=== PATIENT | female | born 1945 | race American Indian/Alaskan Native ===

== ENCOUNTER 2017-11-05 13:24 | Inpatient (IN) | payer MEDICARE ==
[2017-11-05 14:02] LABS: Basophils % (Auto) 1.5 % (0.0-1.8); Eosinophils % (Auto) 0.4 % (0.0-4.3); Mean Corpuscular HGB Conc 28 % (30-34); Mean Corpuscular Volume 71 fl (79-97); Platelet Count 242 K/mm3 (140-440); Red Blood Count 3.88 M/mm3 (3.65-5.03); Red Cell Distribution Width 19.7 % (13.2-15.2)
[2017-11-05 14:03] LABS: Hemoglobin 7.9 gm/dl (10.1-14.3)
[2017-11-05 14:04] LABS: Hematocrit 27.7 % (30.3-42.9); Mean Corpuscular Hemoglobin 20 pg (28-32)
[2017-11-05 14:08] LABS: Anion Gap 21 mmol/L; BUN/Creatinine Ratio 21; Blood Urea Nitrogen 19 mg/dL (7-17); Calcium 8.7 mg/dL (8.4-10.2); Carbon Dioxide 21 mmol/L (22-30); Chloride 103.5 mmol/L (98-107); Glucose 91 mg/dL (65-100); Potassium 3.9 mmol/L (3.6-5.0); Sodium 142 mmol/L (137-145)
--- NOTE | 2017-11-05 15:20 | XRay Report ---
AP CHEST : 11/05/17 13:24:00 CLINICAL: Chest pain. COMPARISON:None FINDINGS: Cardiomegaly and central vascular congestion. Mild under expansion of lungs. Mild right basal subsegmental atelectasis. No pulmonary consolidation. No pulmonary nodule or mass. Surgical clips in the left axilla and left chest wall suggest she has had a left mastectomy and left axillary node dissection. No suspicious bone lesion. IMPRESSION: CHF with mild interstitial pulmonary edema. No evidence of metastatic disease.
--- NOTE | 2017-11-05 15:33 | Emergency Department Report ---
ED Chest Pain HPI - General Chief Complaint: Chest Pain Stated Complaint: CHEST PAIN Time Seen by Provider: 11/05/17 14:44 Source: patient, EMS Mode of arrival: Stretcher Limitations: Other - History of Present Illness MD Complaint: chest pain Onset/Timin (hours ago) -: Gradual Time: 04:00 Onset: during rest Pain Location: substernal Pain Radiation: jaw/teeth Severity: moderate, severe Severity scale (0 -10): 6 Quality: pressure Consistency: intermittent Improves With: nothing Worsens With: nothing re: dyspnea Other Symptoms: cough (productive of whitish sputum), other Treatments Prior to Arrival: none - Related Data Home Medications Medication Instructions Recorded Confirmed Last Taken Acyclovir [Zovirax] 400 mg PO Q12H 11/05/17 11/05/17 Unknown Anastrozole (Nf) [Arimidex (Nf)] 1 mg PO DAILY 11/05/17 11/05/17 Unknown Carvedilol 12.5 mg PO BID 11/05/17 11/05/17 Unknown Darunavir Ethanolate [Prezista] 600 mg PO Q12H 11/05/17 11/05/17 Unknown Esomeprazole Magnesium [NexIUM] 40 mg PO QDAY 11/05/17 11/05/17 Unknown Etravirine [Intelence] 200 mg PO BID 11/05/17 11/05/17 Unknown Furosemide [Lasix] 20 mg PO DAILY 11/05/17 11/05/17 11/05/17 07:00 Lisinopril [Zestril] 5 mg PO QDAY 11/05/17 11/05/17 Unknown Potassium Chloride [Klor-Con 10] 10 meq PO DAILY 11/05/17 11/05/17 11/05/17 07: 00 Raltegravir Potassium [Isentress] 400 mg PO Q12H 11/05/17 11/05/17 Unknown Ritonavir [Norvir] 100 mg PO Q12H 11/05/17 11/05/17 Unknown Rosuvastatin (Nf) [Crestor] 5 mg PO QHS 11/05/17 11/05/17 Unknown Allergies Allergy/AdvReac Type Severity Reaction Status Date / Time aspirin Allergy Unknown Verified 11/05/17 13:28 Penicillins Allergy Unknown Verified 11/05/17 13:28 Heart Score - HEART Score History: Moderately suspicious EKG: Non-specific Age: > 65 Risk factors: > 3 risk factors or hx of atherosclerotic disease Troponin: < normal limit HEART Score: 6 ED Review of Systems ROS: Stated complaint: CHEST PAIN Other details as noted in HPI Comment: All other systems reviewed and negative ED Past Medical Hx - Past Medical History Previous Medical History?: Yes Hx Hypertension: Yes Hx Congestive Heart Failure: Yes Additional medical history: anemia - Surgical History Past Surgical History?: No - Social History Smoking Status: Never Smoker Substance Use Type: None - Medications Home Medications: Home Medications Medication Instructions Recorded Confirmed Last Taken Type Acyclovir [Zovirax] 400 mg PO Q12H 11/05/17 11/05/17 Unknown History Anastrozole (Nf) [Arimidex (Nf)] 1 mg PO DAILY 11/05/17 11/05/17 Unknown History Carvedilol 12.5 mg PO BID 11/05/17 11/05/17 Unknown History Darunavir Ethanolate [Prezista] 600 mg PO Q12H 11/05/17 11/05/17 Unknown History Esomeprazole Magnesium [NexIUM] 40 mg PO QDAY 11/05/17 11/05/17 Unknown History Etravirine [Intelence] 200 mg PO BID 11/05/17 11/05/17 Unknown History Furosemide [Lasix] 20 mg PO DAILY 11/05/17 11/05/17 11/05/17 07:00 History Lisinopril [Zestril] 5 mg PO QDAY 11/05/17 11/05/17 Unknown History Potassium Chloride [Klor-Con 10] 10 meq PO DAILY 11/05/17 11/05/17 11/05/17 07: 00 History Raltegravir Potassium [Isentress] 400 mg PO Q12H 11/05/17 11/05/17 Unknown History Ritonavir [Norvir] 100 mg PO Q12H 11/05/17 11/05/17 Unknown History Rosuvastatin (Nf) [Crestor] 5 mg PO QHS 11/05/17 11/05/17 Unknown History ED Physical Exam - General Limitations: Other General appearance: alert, in no apparent distress - Head Head exam: Present: atraumatic, normocephalic - Eye Eye exam: Present: normal appearance - ENT ENT exam: Present: mucous membranes moist - Neck Neck exam: Present: normal inspection - Respiratory Respiratory exam: Present: normal lung sounds bilaterally. Absent: respiratory distress - Cardiovascular Cardiovascular Exam: Present: regular rate, normal rhythm. Absent: systolic murmur, diastolic murmur, rubs, gallop - GI/Abdominal GI/Abdominal exam: Present: soft, normal bowel sounds. Absent: distended, tenderness - Rectal Rectal exam: Present: deferred - Extremities Exam Extremities exam: Present: normal inspection, pedal edema (2 + bilateral) - Back Exam Back exam: Present: normal inspection - Neurological Exam Neurological exam: Present: alert, oriented X3 - Psychiatric Psychiatric exam: Present: normal affect, normal mood - Skin Skin exam: Present: warm, dry, intact, normal color. Absent: rash ED Course Vital Signs 11/05/17 11/05/17 11/05/17 13:33 13:38 13:45 Temperature 98.7 F Pulse Rate 95 H 94 H 96 H Respiratory 15 24 13 Rate Blood Pressure 144/95 Blood Pressure 144/95 [Left] O2 Sat by Pulse 100 100 Oximetry 11/05/17 11/05/17 11/05/17 14:01 14:15 14:31 Temperature Pulse Rate 97 H 94 H 95 H Respiratory 11 L 22 9 L Rate Blood Pressure 155/107 155/107 155/107 Blood Pressure [Left] O2 Sat by Pulse 96 Oximetry 11/05/17 11/05/17 11/05/17 14:45 15:00 15:15 Temperature Pulse Rate 95 H 93 H 95 H Respiratory 18 16 16 Rate Blood Pressure 155/107 142/94 142/94 Blood Pressure [Left] O2 Sat by Pulse 76 L 95 100 Oximetry 11/05/17 11/05/17 11/05/17 15:31 15:45 16:00 Temperature Pulse Rate 94 H 93 H 99 H Respiratory 14 24 21 Rate Blood Pressure 142/94 155/107 142/87 Blood Pressure [Left] O2 Sat by Pulse 100 100 Oximetry 11/05/17 11/05/17 11/05/17 16:15 16:31 16:45 Temperature Pulse Rate 95 H 96 H 97 H Respiratory 12 18 14 Rate Blood Pressure 142/87 142/87 142/87 Blood Pressure [Left] O2 Sat by Pulse 84 Oximetry 11/05/17 11/05/17 11/05/17 17:00 17:15 17:31 Temperature Pulse Rate 98 H 105 H 100 H Respiratory 11 L 15 17 Rate Blood Pressure 143/91 143/91 143/91 Blood Pressure [Left] O2 Sat by Pulse 100 Oximetry 11/05/17 17:45 Temperature Pulse Rate 120 H Respiratory 17 Rate Blood Pressure 143/91 Blood Pressure [Left] O2 Sat by Pulse Oximetry BHARATH score - Bharath Score Age > 65: (1) Yes Aspirin use within the Past 7 Days: (1) Yes 3 or more CAD Risk Factors: (1) Yes 2 or more Angina events in past 24 hrs: (0) No Known CAD with more than 50% Stenosis: (0) No Elevated Cardiac Markers: (0) No ST Deviation Greater than 0.5mm: (0) No BHARATH Score: 3 ED Medical Decision Making - Lab Data Result diagrams: 11/05/17 13:36 11/05/17 13:36 - EKG Data -: EKG Interpreted by Me EKG shows normal: sinus rhythm, axis (normal), intervals (normal), QRS complexes (normal), ST-T waves (nonspecific ST and T-wave changes) Rate: normal (94) - EKG Data When compared to previous EKG there are: other (right bundle branch block) - Radiology Data Radiology results: report reviewed Critical care attestation.: If time is entered above; I have spent that time in minutes in the direct care of this critically ill patient, excluding procedure time. ED Disposition Clinical Impression: Chest pain Acute exacerbation of CHF (congestive heart failure) Qualifiers: Congestive heart failure type: unspecified congestive heart failure type Qualified Code(s): I50.9 - Heart failure, unspecified Disposition: OP ADMIT IP TO THIS HOSP Is pt being admited?: Yes Condition: Stable Time of Disposition: 18:04 (i spoke to Dr Peter at 1800 and he as accepted patient for admission)
[2017-11-05] MEDS ORDERED: LASIX IV ONE (16:53)
--- NOTE | 2017-11-05 19:18 | History and Physical Report ---
History of Present Illness Date of examination: 11/05/17 Date of admission: 11/05/17 Chief complaint: Cc Cp for 10 hrs Sob for 10 hrs History of present illness: HYDABURG 71 y/o with pmh of Htn HIV Gerd and CHF presents with Chest pain since AM.About 10 hrs Chest pain retrosternal.Non radiating.No diaphoresis.No Palpitations.No N/v.Sob at rest present for 1 day.Orthopnea present.No recent travel.No fever or chills. S Past History Past Medical History: GERD, hypertension Past Surgical History: No surgical history Social history: no significant social history, lives with family, full code Family history: hypertension Medications and Allergies Allergies Allergy/AdvReac Type Severity Reaction Status Date / Time aspirin Allergy Unknown Verified 11/05/17 13:28 Penicillins Allergy Unknown Verified 11/05/17 13:28 Home Medications Medication Instructions Recorded Confirmed Last Taken Type Acyclovir [Zovirax] 400 mg PO Q12H 11/05/17 11/05/17 Unknown History Anastrozole (Nf) [Arimidex (Nf)] 1 mg PO DAILY 11/05/17 11/05/17 Unknown History Carvedilol 12.5 mg PO BID 11/05/17 11/05/17 Unknown History Darunavir Ethanolate [Prezista] 600 mg PO Q12H 11/05/17 11/05/17 Unknown History Esomeprazole Magnesium [NexIUM] 40 mg PO QDAY 11/05/17 11/05/17 Unknown History Etravirine [Intelence] 200 mg PO BID 11/05/17 11/05/17 Unknown History Furosemide [Lasix] 20 mg PO DAILY 11/05/17 11/05/17 11/05/17 07:00 History Lisinopril [Zestril] 5 mg PO QDAY 11/05/17 11/05/17 Unknown History Potassium Chloride [Klor-Con 10] 10 meq PO DAILY 11/05/17 11/05/17 11/05/17 07: 00 History Raltegravir Potassium [Isentress] 400 mg PO Q12H 11/05/17 11/05/17 Unknown History Ritonavir [Norvir] 100 mg PO Q12H 11/05/17 11/05/17 Unknown History Rosuvastatin (Nf) [Crestor] 5 mg PO QHS 11/05/17 11/05/17 Unknown History Review of Systems All systems: negative Cardiovascular: chest pain, orthopnea Respiratory: shortness of breath Exam - Constitutional Vitals: Temp Pulse Resp BP Pulse Ox 98.7 F 90 15 133/95 97 11/05/17 13:38 11/05/17 19:11 11/05/17 19:11 11/05/17 19:11 11/05/17 19:11 General appearance: Present: no acute distress, well-nourished - EENT Eyes: Present: PERRL ENT: hearing intact, clear oral mucosa - Neck Neck: Present: supple, normal ROM - Respiratory Respiratory effort: normal Respiratory: bilateral: CTA, rales - Cardiovascular Heart rate: 80 Rhythm: regular Heart Sounds: Present: S1 & S2. Absent: rub, click - Extremities Extremities: no ischemia, pulses intact, pulses symmetrical, No edema Peripheral Pulses: within normal limits - Abdominal General gastrointestinal: Present: soft, non-tender, non-distended, normal bowel sounds Female genitourinary: Present: normal - Rectal Rectal Exam: deferred - Integumentary Integumentary: Present: clear, warm, dry - Musculoskeletal Musculoskeletal: gait normal, strength equal bilaterally - Psychiatric Psychiatric: appropriate mood/affect, intact judgment & insight - Neurologic Neurologic: CNII-XII intact, moves all extremities - Allied Health Allied health notes reviewed: nursing, case management Results - Labs CBC & Chem 7: 11/06/17 04:57 11/06/17 04:57 Labs: Laboratory Last Values WBC 5.0 K/mm3 (4.5-11.0) 11/05/17 13:36 RBC 3.88 M/mm3 (3.65-5.03) 11/05/17 13:36 Hgb 7.9 gm/dl (10.1-14.3) L 11/05/17 13:36 Hct 27.7 % (30.3-42.9) L 11/05/17 13:36 MCV 71 fl (79-97) L 11/05/17 13:36 MCH 20 pg (28-32) L 11/05/17 13:36 MCHC 28 % (30-34) L 11/05/17 13:36 RDW 19.7 % (13.2-15.2) H 11/05/17 13:36 Plt Count 242 K/mm3 (140-440) 11/05/17 13:36 Lymph % (Auto) 21.3 % (13.4-35.0) 11/05/17 13:36 [place] % (Auto) 13.1 % (0.0-7.3) H 11/05/17 13:36 Eos % (Auto) 0.4 % (0.0-4.3) 11/05/17 13:36 Baso % (Auto) 1.5 % (0.0-1.8) 11/05/17 13:36 Lymph # 1.1 K/mm3 (1.2-5.4) L 11/05/17 13:36 [place] # 0.7 K/mm3 (0.0-0.8) 11/05/17 13:36 Eos # 0.0 K/mm3 (0.0-0.4) 11/05/17 13:36 Baso # 0.1 K/mm3 (0.0-0.1) 11/05/17 13:36 Seg Neutrophils % 63.7 % (40.0-70.0) 11/05/17 13:36 Seg Neutrophils # 3.2 K/mm3 (1.8-7.7) 11/05/17 13:36 Sodium 142 mmol/L (137-145) 11/05/17 13:36 Potassium 3.9 mmol/L (3.6-5.0) 11/05/17 13:36 Chloride 103.5 mmol/L (98-107) 11/05/17 13:36 Carbon Dioxide 21 mmol/L (22-30) L 11/05/17 13:36 Anion Gap 21 mmol/L 11/05/17 13:36 BUN 19 mg/dL (7-17) H 11/05/17 13:36 Creatinine 0.9 mg/dL (0.7-1.2) 11/05/17 13:36 Estimated GFR > 60 ml/min 11/05/17 13:36 BUN/Creatinine Ratio 21 % 11/05/17 13:36 Glucose 91 mg/dL (65-100) 11/05/17 13:36 Calcium 8.7 mg/dL (8.4-10.2) 11/05/17 13:36 Troponin T < 0.010 ng/mL (0.00-0.029) 11/05/17 15:22 Short CBC 11/05/17 11/06/17 Range/Units 13:36 04:57 WBC 5.0 5.7 (4.5-11.0) K/mm3 Hgb 7.9 L 8.5 L (10.1-14.3) gm/dl Hct 27.7 L 29.8 L (30.3-42.9) % Plt Count 242 226 (140-440) K/mm3 BMP 11/05/17 11/06/17 13:36 04:57 Sodium 142 143 Potassium 3.9 3.4 L Chloride 103.5 102.0 Carbon Dioxide 21 L 24 BUN 19 H 20 H Creatinine 0.9 0.9 Glucose 91 97 Calcium 8.7 8.7 Cardiac Enzymes 11/05/17 11/05/17 11/05/17 Range/Units 13:36 15:22 19:28 Troponin T < 0.010 < 0.010 < 0.010 (0.00-0.029) ng/mL Liver Function 11/06/17 Range/Units 04:57 Total Bilirubin 0.90 (0.1-1.2) mg/dL AST 50 H (5-40) units/L ALT 27 (7-56) units/L Alkaline Phosphatase 88 (35-129) units/L Albumin 3.4 L (3.9-5) g/dL - Imaging and Cardiology Chest x-ray: report reviewed (CHf) Assessment and Plan Advance Directives: Yes (Full code) VTE prophylaxis?: Chemical Plan of care discussed with patient/family: Yes - Patient Problems (1) Acute exacerbation of CHF (congestive heart failure) Current Visit: Yes Status: Acute Qualifiers: Congestive heart failure type: combined Qualified Code(s): I50.43 - Acute on chronic combined systolic (congestive) and diastolic (congestive) heart failure Plan to address problem: Cont Lasix po. Patient improved in Er with Lasix. Echo ordered (2) Chest pain Current Visit: Yes Status: Acute Qualifiers: Chest pain type: unspecified Plan to address problem: Chest pain w/u Lexiscan and Serial cardiac enzymes Reflux esophagitis in Diff diagnosis (3) GERD (gastroesophageal reflux disease) Current Visit: Yes Status: Chronic Qualifiers: Esophagitis presence: with esophagitis Qualified Code(s): K21.0 - Gastro- esophageal reflux disease with esophagitis Plan to address problem: Cont ppi's (4) HTN (hypertension) Current Visit: Yes Status: Chronic Qualifiers: Hypertension type: essential hypertension Qualified Code(s): I10 - Essential (primary) hypertension Plan to address problem: cont Carvedilol (5) HIV (human immunodeficiency virus infection) Current Visit: Yes Status: Chronic Plan to address problem: Cont anti retrovirals (6) DVT prophylaxis Current Visit: Yes Status: Acute Plan to address problem: on Lovenox
[2017-11-05] MEDS ORDERED: AMBIEN PO PRN (19:26)
[2017-11-05] MEDS ORDERED: DULCOLAX PR PRN (19:26)
[2017-11-05] MEDS ORDERED: TYLENOL PO PRN (19:26)
[2017-11-05] MEDS ORDERED: MORPHINE IV PRN (19:26)
[2017-11-05] MEDS ORDERED: MILK OF MAGNESIA PO PRN (19:26)
[2017-11-05] MEDS ORDERED: PERCOCET 5/325 PO PRN (19:26)
[2017-11-05] MEDS ORDERED: ZOFRAN IV PRN (19:26)
[2017-11-05] MEDS ORDERED: NON-FORMULARY (Potassium Chloride [Klor-Con 10] 10 MEQ) PO SCH (19:30)
[2017-11-05] MEDS ORDERED: ACYCLOVIR 400 MG PO SCH (19:30)
[2017-11-05] MEDS ORDERED: NON-FORMULARY (Esomeprazole Magnesium [Nexium] 40 MG) PO SCH (19:30)
[2017-11-05] MEDS ORDERED: NON-FORMULARY (Anastrozole (Nf) 1 MG) PO SCH (19:30)
[2017-11-05] MEDS ORDERED: ISENTRESS PO SCH (20:00)
[2017-11-05] MEDS ORDERED: NORVIR PO SCH (20:00)
[2017-11-05] MEDS ORDERED: PREZISTA PO SCH (20:00)
[2017-11-05] MEDS ORDERED: ZESTRIL ONE (21:12)
[2017-11-05] MEDS ORDERED: NON-FORMULARY (Rosuvastatin (Nf) 5 MG) PO SCH (22:00)
[2017-11-05] MEDS ORDERED: NON-FORMULARY (Etravirine [Intelence] 200 MG) PO SCH (22:00)
[2017-11-05] MEDS: COREG PO SCH (23:22)
[2017-11-05] MEDS: LASIX PO SCH (23:22)
[2017-11-05] MEDS: ZESTRIL PO SCH (23:23)
[2017-11-06] MEDS: ZOVIRAX PO SCH ×3 (06:01→20:47)
[2017-11-06 06:02] LABS: Basophils % (Auto) 1.5 % (0.0-1.8); Eosinophils % (Auto) 3.3 % (0.0-4.3); Mean Corpuscular HGB Conc 28 % (30-34); Mean Corpuscular Volume 71 fl (79-97); Platelet Count 226 K/mm3 (140-440); Red Cell Distribution Width 19.8 % (13.2-15.2); White Blood Count 5.7 K/mm3 (4.5-11.0)
[2017-11-06 06:15] LABS: Hematocrit 29.8 % (30.3-42.9); Hemoglobin 8.5 gm/dl (10.1-14.3); Mean Corpuscular Hemoglobin 20 pg (28-32)
[2017-11-06 06:29] LABS: Alanine Aminotransferase 27 units/L (7-56); Albumin 3.4 g/dL (3.9-5); Albumin/Globulin Ratio 0.8 %; Alkaline Phosphatase 88 units/L (35-129); Anion Gap 20 mmol/L; BUN/Creatinine Ratio 22; Blood Urea Nitrogen 20 mg/dL (7-17); Calcium 8.7 mg/dL (8.4-10.2); Carbon Dioxide 24 mmol/L (22-30); Glucose 97 mg/dL (65-100); Potassium 3.4 mmol/L (3.6-5.0); Sodium 143 mmol/L (137-145); Total Protein 7.6 g/dL (6.3-8.2)
[2017-11-06 09:07] LABS: Creatine Kinase MB 2.4 ng/mL (0.0-4.0)
[2017-11-06 09:08] LABS: Creatine Kinase 116 units/L (30-135)
[2017-11-06] MEDS: DUONEB *Not for PRN Use IH SCH ×3 (09:30→21:06)
[2017-11-06] MEDS: LOVENOX SUB-Q SCH (09:30)
[2017-11-06] MEDS ORDERED: ARIMIDEX (NF) PO SCH (10:00)
--- NOTE | 2017-11-06 10:11 | Progress Note ---
Assessment and Plan Assessment and plan: --Acute on chronic systolic congestive heart failure Continue anti-failure medications, follow echocardiogram, cardiology evaluation if needed, patient refuses stress test --Atypical chest pain probably secondary to acute exacerbation of CHF; Serial cardiac enzymes, patient refuses stress test, medical management --Gastroesophageal reflux disease; continue Protonix --Hypertension; moderate control, resume home antihypertensives and when necessary medications --History of HIV/AIDS; continue antiretrovirals, consider ID evaluation if needed --DVT prophylaxis with Lovenox History Interval history: Patient seen and examined medical records reviewed Admitted with chest pain, refused stress test Feeling slightly better no new complaints Vital signs reviewed Hospitalist Physical - Constitutional Vitals: Temp Pulse Resp BP Pulse Ox 97.4 F L 92 H 18 125/91 96 11/06/17 09:08 11/06/17 09:30 11/06/17 09:30 11/06/17 09:08 11/06/17 09:30 General appearance: Present: no acute distress, well-nourished - EENT Eyes: Present: PERRL, EOM intact - Neck Neck: Present: supple, normal ROM - Respiratory Respiratory effort: normal Respiratory: bilateral: diminished, negative: rales, rhonchi, wheezing - Cardiovascular Rhythm: regular Heart Sounds: Present: S1 & S2 - Extremities Extremities: no ischemia, No edema Peripheral Pulses: within normal limits - Abdominal General gastrointestinal: soft, non-tender, non-distended, normal bowel sounds - Integumentary Integumentary: Present: clear, warm - Psychiatric Psychiatric: appropriate mood/affect, cooperative - Neurologic Neurologic: CNII-XII intact, moves all extremities Results - Labs CBC & Chem 7: 11/06/17 04:57 11/06/17 04:57 Labs: Laboratory Last Values WBC 5.7 K/mm3 (4.5-11.0) 11/06/17 04:57 RBC 4.20 M/mm3 (3.65-5.03) 11/06/17 04:57 Hgb 8.5 gm/dl (10.1-14.3) L 11/06/17 04:57 Hct 29.8 % (30.3-42.9) L 11/06/17 04:57 MCV 71 fl (79-97) L 11/06/17 04:57 MCH 20 pg (28-32) L 11/06/17 04:57 MCHC 28 % (30-34) L 11/06/17 04:57 RDW 19.8 % (13.2-15.2) H 11/06/17 04:57 Plt Count 226 K/mm3 (140-440) 11/06/17 04:57 Lymph % (Auto) 23.5 % (13.4-35.0) 11/06/17 04:57 [place] % (Auto) 15.2 % (0.0-7.3) H 11/06/17 04:57 Eos % (Auto) 3.3 % (0.0-4.3) 11/06/17 04:57 Baso % (Auto) 1.5 % (0.0-1.8) 11/06/17 04:57 Lymph # 1.3 K/mm3 (1.2-5.4) 11/06/17 04:57 [place] # 0.9 K/mm3 (0.0-0.8) H 11/06/17 04:57 Eos # 0.2 K/mm3 (0.0-0.4) 11/06/17 04:57 Baso # 0.1 K/mm3 (0.0-0.1) 11/06/17 04:57 Seg Neutrophils % 56.5 % (40.0-70.0) 11/06/17 04:57 Seg Neutrophils # 3.2 K/mm3 (1.8-7.7) 11/06/17 04:57 Sodium 143 mmol/L (137-145) 11/06/17 04:57 Potassium 3.4 mmol/L (3.6-5.0) L 11/06/17 04:57 Chloride 102.0 mmol/L (98-107) 11/06/17 04:57 Carbon Dioxide 24 mmol/L (22-30) 11/06/17 04:57 Anion Gap 20 mmol/L 11/06/17 04:57 BUN 20 mg/dL (7-17) H 11/06/17 04:57 Creatinine 0.9 mg/dL (0.7-1.2) 11/06/17 04:57 Estimated GFR > 60 ml/min 11/06/17 04:57 BUN/Creatinine Ratio 22 % 11/06/17 04:57 Glucose 97 mg/dL (65-100) 11/06/17 04:57 Hemoglobin A1c 4.9 % (4-6) 11/05/17 19:33 Calcium 8.7 mg/dL (8.4-10.2) 11/06/17 04:57 Total Bilirubin 0.90 mg/dL (0.1-1.2) 11/06/17 04:57 AST 50 units/L (5-40) H 11/06/17 04:57 ALT 27 units/L (7-56) 11/06/17 04:57 Alkaline Phosphatase 88 units/L (35-129) 11/06/17 04:57 Total Creatine Kinase 116 units/L (30-135) 11/06/17 04:57 CK-MB (CK-2) 2.4 ng/mL (0.0-4.0) 11/06/17 04:57 CK-MB (CK-2) Rel Index 2.0 (0-4) 11/06/17 04:57 Troponin T < 0.010 ng/mL (0.00-0.029) 11/06/17 04:57 NT-Pro-B Natriuret Pep 37152 pg/mL (0-900) H 11/06/17 04:57 Total Protein 7.6 g/dL (6.3-8.2) 11/06/17 04:57 Albumin 3.4 g/dL (3.9-5) L 11/06/17 04:57 Albumin/Globulin Ratio 0.8 % 11/06/17 04:57
[2017-11-06] MEDS: ZESTRIL PO SCH (10:30)
[2017-11-06] MEDS: K-DUR PO SCH (10:31)
[2017-11-06] MEDS: COREG PO SCH ×3 (10:32→21:00)
[2017-11-06] MEDS: PROTONIX PO SCH (10:32)
[2017-11-06] MEDS: LASIX PO SCH (10:32)
[2017-11-07] MEDS: ZOVIRAX PO SCH ×2 (00:42→10:01)
[2017-11-07] MEDS: DUONEB *Not for PRN Use IH SCH ×3 (03:16→13:12)
[2017-11-07 07:19] LABS: Creatine Kinase MB 1.3 ng/mL (0.0-4.0)
[2017-11-07 07:20] LABS: Creatine Kinase 96 units/L (30-135)
[2017-11-07] MEDS: K-DUR PO SCH (10:00)
[2017-11-07] MEDS: LASIX PO SCH (10:00)
[2017-11-07] MEDS: LOVENOX SUB-Q SCH (10:00)
[2017-11-07] MEDS: PROTONIX PO SCH (10:01)
[2017-11-07] MEDS: ZESTRIL PO SCH (10:01)
[2017-11-07] MEDS: COREG PO SCH (10:59)
--- NOTE | 2017-11-07 14:50 | Discharge Summary ---
Providers - Providers Date of Admission: 11/05/17 19:26 Date of discharge: 11/07/17 Attending physician: CLAUDETTE MESSINA 11/06/17 19:08 Consult to Physician [CONS] Routine Consulting Provider: KADE BREWSTER Reason For Exam: severe CMP EF 10%/r/o ischemia Place consult to:: Dr. Brewster Notified:: Nolan LEONE Phone number called:: Was contact made?: Yes If yes, spoke with:: Katherin-answering service Time called:: 08:22 Hospitalization Reason for admission: Worsening shortness of breath Condition: Stable Pertinent studies: CXR,ECHO Hospital course: 71 yr old female patient with known h/o severe cardiomyopathy with EF 10%, [facility] was admitted with worsening shortness of breath. managed with antifailure medications. Symptoms significantly improved. Today patient is comfortable Vital signs stable,Physical exam is unremarkable Patient is stable at discharge Discharge Diagnosis: --Severe cardiomyopathy; left ventricular ejection fraction 10%, f/u with private fermenter wine upon discharge --Acute on chronic systolic congestive heart failure Continue anti-failure medications, patient is scheduled to have ICD at [facility] --Atypical chest pain probably secondary to acute exacerbation of CHF; Serial cardiac enzymes, patient refuses stress test, medical management --Gastroesophageal reflux disease; continue Protonix --Hypertension; moderate control, on antihypertensives and when necessary medications --History of HIV/AIDS; continue antiretrovirals, f/u ID upon discharge Disposition: DC-01 TO HOME OR SELFCARE Time spent for discharge: 32 min Core Measure Documentation - Palliative Care Palliative Care/ Comfort Measures: Not Applicable - Core Measures Any of the following diagnoses?: heart failure - Heart Failure Discharge Requirements CYNDI/ARB for LVSD if EF <40%: Yes Beta farzana at discharge: Yes Exam - Constitutional Vitals: Temp Pulse Resp BP Pulse Ox 99.3 F 92 H 20 113/77 100 11/07/17 05:14 11/07/17 07:48 11/07/17 07:48 11/07/17 05:14 11/07/17 07:38 General appearance: Present: no acute distress, well-nourished - EENT Eyes: Present: PERRL, EOM intact - Neck Neck: Present: supple, normal ROM - Respiratory Respiratory effort: normal Respiratory: bilateral: diminished, rales, negative: rhonchi, wheezing - Cardiovascular Rhythm: regular Heart Sounds: Present: S1 & S2 - Extremities Extremities: no ischemia Extremity abnormal: edema - Abdominal General gastrointestinal: Present: soft, non-tender, non-distended - Integumentary Integumentary: Present: clear, warm - Musculoskeletal Musculoskeletal: strength equal bilaterally - Psychiatric Psychiatric: appropriate mood/affect, cooperative - Neurologic Neurologic: moves all extremities Plan Activity: no restrictions Diet: low salt, other (cardiac diet) Additional Instructions: f/u Gareth on 11/26/2017 for planned ICD placement [as per patient]. f/u private fermenter wine Dr.Whithrow Villatoro per schedule Follow up with: FABIENNE PACKER [Other] - 3-5 Days KADE BREWSTER MD [Staff Physician] - 7 Days
[2017-11-07 19:03] VITALS: BP 141/91
--- NOTE | 2017-11-07 23:31 | Consultation ---
REASON FOR CONSULTATION: Evaluation of cardiomyopathy. HISTORY OF PRESENT ILLNESS: The patient is a 71-year-old -[place] female presented to the Emergency Room with shortness of breath of 6 months' duration. The patient's shortness of breath gradually got worse and to the point where she cannot sleep at night. She has to sleep with pillows. She has history of congestive heart failure for the last 10 years, being followed on a regular basis by [facility]. The patient gives history of having essential hypertension since her 20s. She was diagnosed to have heart failure 10 years ago. Apparently, she had a cardiac catheterization done last year and no significant abnormalities were noted. 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 Her other diagnoses include gastroesophageal reflux disease. The patient also says she has 2 strokes last year when she has some transient slurred speech and fell down; however, no weakness of the extremities. The patient claims that she is being followed regularly at [facility] and by nursing unit coordinator. She is taking her medications regularly. HOME MEDICATIONS: Included carvedilol 12.5 mg b.i.d., Nexium 40 mg once daily, lisinopril 5 mg a day, KCl 10 mEq daily in addition to Crestor 5 mg at bedtime. The patient also on anti-retroviral agents. ALLERGIES: PENICILLIN and ASPIRIN. SOCIAL HISTORY: She used to smoke 1 pack in a week, but quit 6-7 years ago. No history of alcohol use. The patient lives with her one of the sons. REVIEW OF SYSTEMS: The patient is having increasing shortness of breath of many months' duration, worse, now she cannot lay down. Otherwise, denied any chest pain. She also developed some leg swelling. As mentioned above, the patient has longstanding hypertension. No history of diabetes mellitus. History of strokes as mentioned above, history of gastroesophageal reflux disease. No history of kidney stones or gallstones. No history of pulmonary emboli or DVT. No fever, no coughing, no chills. PHYSICAL EXAMINATION: GENERAL: The patient appears to be comfortable, well developed, well nourished. HEENT: Conjunctivae pink. Sclerae anicteric. NECK: Supple, no JVD. HEART: Regular, S4 noted, S3 noted. No significant murmurs noted. LUNGS: Clear at this point. ABDOMEN: Benign. EXTREMITIES: Mild edema noted. NEUROLOGIC: Grossly intact. Alert, oriented x 3. The patient uses a cane, but she says she has severe arthritis in both others and both the knees. DIAGNOSTIC DATA: X-ray performed on 11/05/2017, showed CHF with mild interstitial pulmonary edema. Also, the patient had echocardiogram performed on 11/06/2017, which showed ejection fraction of 15-20%. Left atrium is moderately enlarged. Moderate mitral regurgitation noted. Right ventricular systolic pressure was estimated to be 54 mmHg. No pericardial effusion noted. FINAL IMPRESSION: 1. Dilated cardiomyopathy of 10 years' duration with worsening symptoms. The patient apparently had catheterization done last year. She is being followed on a regular basis at [facility]. EKG with present management. Clinically, she got better. She wants to be discharged and followed as an outpatient. I agree with the plan. 2. Longstanding hypertension. 3. History of strokes. 4. History of being positive for human immunodeficiency virus and treatment. 5. History of gastroesophageal reflux disease. It is to be noted the patient is on Arimidex 1 mg daily. At this time, cardiac status appears to be stable. The patient is going to have followup with [facility]. I agree with the plan. Thank you very much, Dr. Suarez, for letting us to participate in your patient's care. JOB# [id number] JOHN/[place]
== END 2017-11-07 18:00 | disposition home or self-care (01) | DRG 291 ==
LOC: ED 13:24 → 4A 19:26
PROVIDERS: ADMIT Internal Medicine; ATTEND Internal Medicine
DX: I11.0 Hypertensive heart disease with heart failure (principal); B20 Human immunodeficiency virus [HIV] disease; I50.23 Acute on chronic systolic (congestive) heart failure; Z88.6 Allergy status to analgesic agent; Z88.0 Allergy status to penicillin; Z79.899 Other long term (current) drug therapy; K21.9 Gastro-esophageal reflux disease without esophagitis; Z82.49 Family history of ischemic heart disease and other diseases of the circulatory system; I42.9 Cardiomyopathy, unspecified
CPT/HCPCS: 36415; 71010; 80048; 80053; 82550; 82553; 83036; 83880; 84484; 85025; 93005; 93010; 93306; 94640; 96374; A9270-GY; J1650; J1940; S0170